=== PATIENT | male | born 1970 | race Caucasian/White ===

== ENCOUNTER 2018-12-12 19:27 | Emergency (ER) | payer BC ==
[2018-12-12] MEDS ORDERED: CEPHALEXIN 500 MG CAPSULE PO STA (19:37)
--- NOTE | 2018-12-12 19:43 | Emergency Department Record ---
History of Present Illness - General Chief complaint: Lower Extremity Pain Stated complaint: LT FOOT INJURY Time Seen by Provider: 12/12/18 19:37 Source: Patient Mode of Arrival: Ambulatory Limitations: No limitations - History of Present Illness Initial comments: 48 yo male presents with left lateral ankle injury. He was working when a drill fell off a ladder and struck his left lateral ankle. The tip causes a superficial abrasion. Over the last three hours he has developed some pain and swelling. His last tetanus was November of 2014 (less than 5 years). No numbness or tingling. MD Complaint: Extremity pain, Joint pain -: Hour(s) (3) Location: Left -: Yes Arthralgia Radiation: Distal Quality: Aching Consistency: Constant - Related Data Previous Rx's Medication Instructions Recorded Cephalexin [Keflex] 500 mg PO TID #21 cap 12/12/18 Allergies Allergy/AdvReac Type Severity Reaction Status Date / Time No Known Drug Allergies Allergy Unverified 04/22/17 15:01 Past Medical History - SOCIAL HISTORY Smoking Status: Never smoker - RESPIRATORY Hx Respiratory Disorders: No - CARDIOVASCULAR Hx Cardio Disorders: No - NEURO Hx Neuro Disorders: No - GI Hx GI Disorders: No - Hx Genitourinary Disorders: No - ENDOCRINE Hx Endocrine Disorders: No - MUSCULOSKELETAL Hx Musculoskeletal Disorders: No - PSYCH Hx Psych Problems: No - HEMATOLOGY/ONCOLOGY Hx Hematology/Oncology Disorders: No Family Medical History Hx Cancer: Father Hx Diabetes: Father Hx Heart Disease: Father Hx HTN: Father Hx Stroke: Grandparents Physical Exam - General General Appearance: Alert, Oriented x3, Cooperative, No acute distress Limitations: No limitations - Head Head exam: Atraumatic, Normal inspection - Eye Eye exam: Normal appearance - ENT ENT exam: Normal exam Ear exam: Normal external inspection Nasal Exam: Normal inspection Mouth exam: Normal external inspection - Neck Neck exam: Normal inspection - Cardiovascular Peripheral Pulses: 2+: Dorsalis Pedis (L) - Rectal Rectal exam: Deferred - exam: Deferred - Extremities Extremities exam: Joint swelling, Normal capillary refill, Tenderness. negative: Normal inspection Image of Feet: 1 - mild soft tissue swelling, no erythema, 5mm abrasion with very superficial break in the skin, full ROM - Neurological Neurological exam: Alert, Oriented X3 - Psychiatric Psychiatric exam: Normal affect, Normal mood - Skin Skin exam: Abrasion Course Vital Signs 12/12/18 19:33 Temperature 98.8 F Pulse Rate [ 91 H Pulse Ox Probe] Respiratory 20 Rate Blood Pressure 131/84 [Left Arm] Pulse Ox 98 - Reevaluation(s) Reevaluation #1: 12/12/18 20:05 The tetanus is up to date at less than 5 years The XR was reviewed. No acute bony abnormality or FB We discussed things to do to minimize swelling, monitor for signs of infection and follow up Although not deep we discussed puncture wounds and increased risk for infection so Keflex added as well Decline crutches. 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 12/12/18 20:06 Disposition Disposition: Discharge Clinical Impression: Contusion of ankle Qualifiers: Encounter type: initial encounter Disposition: Home, Self-Care Condition: (1) Good Instructions: Puncture Wound (ED) Additional Instructions: Call your doctor for the next available follow up appointment Review this ER visit and the tests performed with your family doctor Return to the ER for a recheck if worse, any new concerns or questions Keep the foot elevated as much as possible to minimize swelling You may ice the area to minimize swelling as well Take the prescriptions provided as directed Prescriptions: Cephalexin [Keflex] 500 mg PO TID #21 cap Forms: Patient Portal Access Time of Disposition: 20:07 Quality - Quality Measures Quality Measures: N/A - Blood Pressure Screening Does Patient Have Any of the Following: No Blood Pressure Classification: Pre-Hypertensive BP Reading Systolic Measurement: 131 Diastolic Measurement: 84 Screening for High Blood Pressure: < Pre-Hypertensive BP, F/U Documented > [G8950] Pre-Hypertensive Follow-up Interventions: Referral to alternative/primary care provider.
--- NOTE | 2018-12-14 12:28 | RADIOLOGY REPORT ---
EXAM: LEFT ANKLE HISTORY: PATIENT HAS INJURY TO THE LEFT ANKLE. TECHNIQUE: Three views of the left ankle are provided without comparison examinations. FINDINGS: There is no radiographic evidence of a fracture or dislocation of the left ankle. Soft tissue swelling is noted over the lateral malleolus. No radiopaque foreign bodies are identified. Lateral projection suggests tibiotalar arthrosis. IMPRESSION: SOFT TISSUE SWELLING IS NOTED OVER THE LATERAL MALLEOLUS WITHOUT RADIOGRAPHIC EVIDENCE OF A FRACTURE OR DISLOCATION OF THE LEFT ANKLE. THERE ARE FINDINGS SUGGESTIVE OF MILD TIBIOTALAR ARTHROSIS. JOB NUMBER: [id number] [facility]
== END 2018-12-12 20:32 | disposition home or self-care (01) ==
LOC: ER 19:27
DX: S90.02XA Contusion of left ankle, initial encounter (principal); W20.8XXA Other cause of strike by thrown, projected or falling object, initial encounter; Y92.018 Other place in single-family (private) house as the place of occurrence of the external cause
CPT/HCPCS: 99283